=== PATIENT | male | born 1955 | race Caucasian/White ===

== ENCOUNTER 2018-04-08 09:49 | Emergency (ER) | payer OTHER ==
[2018-04-08 09:55] VITALS: TEMP 97.8
--- NOTE | 2018-04-08 10:05 | ED ---
General Adult HPI - General Chief complaint: Extremity Problem,Nontraumatic Stated complaint: poss blood clot Time Seen by Provider: 04/08/18 09:56 Source: patient, RN notes reviewed Mode of arrival: ambulatory Limitations: no limitations - History of Present Illness Initial comments: Patient's a 53-year-old male presented to the emergency room today with chief complaint of needing ultrasound of the right lower extremity. Patient does admit that he had an injury to the anterior aspect of the right lower extremity approximately a month multi-half ago when a cart fell out of the back of truck and scraped front of the medina. Patient does admit that over the last week he's noticed some pains and swelling to the posterior aspect of the right. He did go to a family doctor today was advised coming here in the emergency room to have a shot rule out possible DVT. Patient denies any history of blood clots. He denies any shortness breath, chest pain or difficulty breathing. Patient denies any other complaints. - Related Data Home Medications Medication Instructions Recorded Confirmed Allopurinol [Zyloprim] 100 mg PO BID 12/22/15 12/22/15 Atenolol [Tenormin] 100 mg PO BID 12/22/15 12/26/15 Lisinopril-Hctz 20-25 mg 1 tab PO BID 12/22/15 12/22/15 [Zestoretic 20-25] Loratadine [Claritin] 10 mg PO DAILY 12/22/15 12/22/15 Allergies Allergy/AdvReac Type Severity Reaction Status Date / Time No Known Allergies Allergy Verified 04/08/18 10:48 Review of Systems ROS Statement: Those systems with pertinent positive or pertinent negative responses have been documented in the HPI. ROS Other: All systems not noted in ROS Statement are negative. Past Medical History Past Medical History: GERD/Reflux, Hypertension Additional Past Medical History / Comment(s): HX OF FX COLLAR BONE A CHILD., GOUT, PAST HX OF GERD (NO PROBLEM NOW), HAS HAD A TICKLE IN HIS CHEST - STATES HE WAS ON A STEROID DOSE PACK AND CHEST X-RAY WAS NORMAL, IS SCHEDULED FOR A PFT. History of Any Multi-Drug Resistant Organisms: None Reported Past Surgical History: Appendectomy Past Anesthesia/Blood Transfusion Reactions: No Reported Reaction Past Psychological History: No Psychological Hx Reported Smoking Status: Former smoker Past Alcohol Use History: Daily Past Drug Use History: None Reported - Past Family History Father Family Medical History: Cancer, CVA/TIA, Myocardial Infarction ([place]) Additional Family Medical History / Comment(s): PROSTATE CANCER. Mother Family Medical History: CVA/TIA Sister(s) Family Medical History: Diabetes Mellitus General Exam - General Exam Comments Initial Comments: General: The patient is awake and alert, in no distress, and does not appear acutely ill. Neck: The neck is supple Cardiovascular: There is a regular rate and rhythm. No murmur, rub or gallop is appreciated. Respiratory: Lungs are clear to auscultation, respirations are non-labored, breath sounds are equal. No wheezes, stridor, rales, or rhonchi. Musculoskeletal: Patient does have moderate swelling of the right calf when compared bilaterally. Sensations are intact. Pedal pulses 2+. Strength 5/5. Shows full range of motion. Neurological: A&O x 3. CN II-XII intact, There are no obvious motor or sensory deficits. Coordination appears grossly intact. Speech is normal. Skin: Skin is warm and dry and no rashes or lesions are noted. Psychiatric: Normal mood and affect. Limitations: no limitations Course Vital Signs 04/08/18 09:50 Temperature 97.8 F Pulse Rate 58 L Respiratory 16 Rate Blood Pressure 151/89 O2 Sat by Pulse 97 Oximetry Medical Decision Making - Medical Decision Making Ultrasound negative for any evidence of DVT. Results were discussed with the patient. Patient is advised to elevate the affected area and use anti- inflammatories for pain. Advised follow-up family doctor over the next 2-5 days return here to the emergency room symptoms increase worsen or for any other concerns. Disposition Clinical Impression: Pain of right calf Disposition: HOME SELF-CARE Condition: Good Instructions: Muscle Strain (ED) Additional Instructions: Please use medication as discussed. Please follow-up with family doctor in the next 2-5 days of symptoms have not improved. Please return to emergency room if the symptoms increase or worsen or for any other concerns. Is patient prescribed a controlled substance at d/c from ED?: No Referrals: [facility],Clinic [Primary Care Provider] - 1-2 days Time of Disposition: 11:06
--- NOTE | 2018-04-08 10:41 | US ---
EXAMINATION TYPE: US venous doppler duplex LE RT DATE OF EXAM: 04/08/2018 10:22 AM COMPARISON: NONE CLINICAL HISTORY: Pain. Pt states right calf pain x 2 weeks SIDE PERFORMED: Right TECHNIQUE: The lower extremity deep venous system is examined utilizing real time linear array sonog kevin with graded compression, doppler sonography and color-flow sonography. VESSELS IMAGED: External Iliac Vein (EIV) Common Femoral Vein Deep Femoral Vein Greater Saphenous Vein * Femoral Vein Popliteal Vein Small Saphenous Vein * Proximal Calf Veins (* superficial vessels) Right Leg: Negative for DVT IMPRESSION: No evidence for DVT
[2018-04-08 11:13] VITALS: BP 147/93; PULSE 73; RESP 18
== END 2018-04-08 11:13 | disposition home or self-care (01) ==
LOC: EC 09:49
DX: M79.604 Pain in right leg (principal); M79.89 Other specified soft tissue disorders; I10 Essential (primary) hypertension; M10.9 Gout, unspecified; Z87.891 Personal history of nicotine dependence; Z79.899 Other long term (current) drug therapy
CPT/HCPCS: 99283

== ENCOUNTER → 2018-10-27 | Outpatient (CLI) | payer OTHER ==
--- NOTE | 2018-10-27 15:49 | US ---
EXAMINATION TYPE: US liver DATE OF EXAM: 10/27/2018 COMPARISON: CT 2009 CLINICAL HISTORY: Elevated liver functions R94.5. Elevated LFT's EXAM MEASUREMENTS: Liver Length: 15.7 cm Gallbladder Wall: 0.2 cm CBD: 0.4 cm Right Kidney: 11.3 x 5.7 x 6.4 cm Pancreas: visualized portions wnl, limited by overlying midline bowel gas Liver: There is mild increased echogenicity of the hepatic parenchyma with diminished visualization of the portal triads most commonly relating to hepatic steatosis and limiting evaluation for underlyi ng hepatic masses. Gallbladder: wnl Evidence for sonographic Kumar's sign: no CBD: visualized portions wnl, limited by overlying bowel gas Right Kidney: wnl IMPRESSION: Mild increased echogenicity of the hepatic burden, fevers mild hepatic steatosis.
== END ==
LOC: RADUSWWP 15:07
PROVIDERS: ATTEND Physician Assistant Medical
DX: K76.0 Fatty (change of) liver, not elsewhere classified (principal); R94.5 Abnormal results of liver function studies
CPT/HCPCS: 76705

== ENCOUNTER 2020-09-22 09:26 | Emergency (ER) | payer OTHER ==
[2020-09-22 09:32] VITALS: TEMP 97.9
--- NOTE | 2020-09-22 09:43 | ED ---
General Adult HPI - General Chief complaint: Recheck/Abnormal Lab/Rx Stated complaint: lab recheck-sent by PCP Time Seen by Provider: 09/22/20 09:33 Source: patient, RN notes reviewed Mode of arrival: ambulatory Limitations: no limitations - History of Present Illness Initial comments: Patient is a pleasant 65-year-old male presenting to the emergency Department with complaints of reported hyperkalemia. Patient states he had routine passing blood work done yesterday morning and was called stating that his potassium was down to 2.7. Patient states he is on diuretic. A medina is not on supplemental potassium but does take a multivitamin. Patient otherwise feels fine and has no complaints. No history of similar symptoms previously. - Related Data Home Medications Medication Instructions Recorded Confirmed Atenolol [Tenormin] 100 mg PO BID 12/22/15 09/22/20 allopurinoL [Zyloprim] 200 mg PO DAILY 12/22/15 09/22/20 Diltiazem Cd [Cardizem Cd] 120 mg PO DAILY 04/08/18 09/22/20 Apixaban [Eliquis] 5 mg PO DAILY 09/22/20 09/22/20 Atorvastatin [Lipitor] 40 mg PO DAILY 09/22/20 09/22/20 Clopidogrel Bisulfate [Plavix] 75 mg PO DAILY 09/22/20 09/22/20 Furosemide [Lasix] 40 mg PO DAILY 09/22/20 09/22/20 Multivitamins, Thera [Multivitamin 1 tab PO DAILY 09/22/20 09/22/20 (formulary)] amLODIPine [Norvasc] 5 mg PO DAILY 09/22/20 09/22/20 Previous Rx's Medication Instructions Recorded Potassium Chloride ER [K-Dur 20] 20 meq PO BID #5 tab 09/22/20 Allergies Allergy/AdvReac Type Severity Reaction Status Date / Time No Known Allergies Allergy Verified 09/22/20 09:57 Review of Systems ROS Statement: Those systems with pertinent positive or pertinent negative responses have been documented in the HPI. ROS Other: All systems not noted in ROS Statement are negative. Constitutional: Denies: fever Eyes: Denies: eye pain ENT: Denies: ear pain Respiratory: Denies: cough Cardiovascular: Denies: chest pain, palpitations Endocrine: Denies: fatigue Gastrointestinal: Denies: abdominal pain Genitourinary: Denies: dysuria Musculoskeletal: Denies: back pain Skin: Denies: rash Neurological: Denies: weakness Past Medical History Past Medical History: Atrial Fibrillation, Coronary Artery Disease (CAD), GERD/Reflux, Hypertension Additional Past Medical History / Comment(s): HX OF FX COLLAR BONE A CHILD., GOUT, PAST HX OF GERD (NO PROBLEM NOW), HAS HAD A TICKLE IN HIS CHEST - STATES HE WAS ON A STEROID DOSE PACK AND CHEST X-RAY WAS NORMAL, IS SCHEDULED FOR A PFT. History of Any Multi-Drug Resistant Organisms: None Reported Past Surgical History: Appendectomy Past Anesthesia/Blood Transfusion Reactions: No Reported Reaction Past Psychological History: No Psychological Hx Reported Smoking Status: Never smoker Past Alcohol Use History: Daily Past Drug Use History: None Reported - Past Family History Father Family Medical History: Cancer, CVA/TIA, Myocardial Infarction ([place]) Additional Family Medical History / Comment(s): PROSTATE CANCER. Mother Family Medical History: CVA/TIA Sister(s) Family Medical History: Diabetes Mellitus General Exam Limitations: no limitations General appearance: alert, in no apparent distress Head exam: Present: normocephalic Eye exam: Present: normal appearance Neck exam: Present: normal inspection Respiratory exam: Present: normal lung sounds bilaterally Cardiovascular Exam: Present: regular rate, normal rhythm, normal heart sounds GI/Abdominal exam: Present: soft. Absent: tenderness Extremities exam: Present: normal inspection Neurological exam: Present: alert Psychiatric exam: Present: normal affect, normal mood Skin exam: Present: normal color Course Vital Signs 09/22/20 09/22/20 09:30 10:21 Temperature 97.9 F Pulse Rate 62 49 L Respiratory 20 18 Rate Blood Pressure 168/105 150/90 O2 Sat by Pulse 98 97 Oximetry - Reevaluation(s) Reevaluation #1: 09/22/20 09:59 Patient and she was diagnosed with atrial fibrillation around 6 months ago and placed on Eliquis and Plavix. EKG Findings - EKG Comments: EKG Findings:: Appearance of atrial fibrillation with slow ventricular response. Rate 59. QRS 104. QT 434. QTC 420 9P left axis. Incomplete right bundle- branch block. Borderline lateral ST depression. Medical Decision Making - Medical Decision Making Patient reevaluated and remained symptom-free. Patient updated on results and plan. Patient was recommended admission secondary to concerns with possible EKG changes. Unable to identify old EKG despite calling primary care physician and teletype or varitype keyboard operator. Old teletype or varitype keyboard operator has got out of business. Patient is aware of recommendations however states he is to take care of family members and will leave AGAINST MEDICAL ADVICE. - Lab Data Result diagrams: 09/22/20 09:44 09/22/20 09:44 Lab Results 09/22/20 09/22/20 09/22/20 Range/Units 09:44 09:44 09:44 WBC 6.1 (3.8-10.6) k/uL RBC 4.64 (4.30-5.90) m/uL Hgb 16.0 (13.0-17.5) gm/dL Hct 43.6 (39.0-53.0) % MCV 94.1 (80.0-100.0) fL MCH 34.5 (25.0-35.0) pg MCHC 36.6 (31.0-37.0) g/dL RDW 12.2 (11.5-15.5) % Plt Count 193 (150-450) k/uL MPV 6.8 Neutrophils % 69 % Lymphocytes % 19 % Monocytes % 6 % Eosinophils % 3 % Basophils % 1 % Neutrophils # 4.2 (1.3-7.7) k/uL Lymphocytes # 1.1 (1.0-4.8) k/uL Monocytes # 0.4 (0-1.0) k/uL Eosinophils # 0.2 (0-0.7) k/uL Basophils # 0.1 (0-0.2) k/uL Sodium 137 (137-145) mmol/L Potassium 3.1 L (3.5-5.1) mmol/L Chloride 99 (98-107) mmol/L Carbon Dioxide 30 (22-30) mmol/L Anion Gap 8 mmol/L BUN 12 (9-20) mg/dL Creatinine 0.73 (0.66-1.25) mg/dL Est GFR (CKD-EPI)AfAm >90 (>60 ml/min/1.73 sqM) Est GFR (CKD-EPI)NonAf >90 (>60 ml/min/1.73 sqM) Glucose 141 H (74-99) mg/dL Calcium 8.8 (8.4-10.2) mg/dL Magnesium 1.6 (1.6-2.3) mg/dL Total Bilirubin 1.0 (0.2-1.3) mg/dL AST 51 (17-59) U/L ALT 29 (4-49) U/L Alkaline Phosphatase 73 (38-126) U/L Total Protein 7.3 (6.3-8.2) g/dL Albumin 4.1 (3.5-5.0) g/dL Urine Color Light Yellow Urine Appearance Clear (Clear) Urine pH 6.5 (5.0-8.0) Ur Specific [place] 1.007 (1.001-1.035) Urine Protein Negative (Negative) Urine Glucose (UA) Negative (Negative) Urine Ketones Negative (Negative) Urine Blood Negative (Negative) Urine Nitrite Negative (Negative) Urine Bilirubin Negative (Negative) Urine Urobilinogen <2.0 (<2.0) mg/dL Ur Leukocyte Esterase Negative (Negative) Disposition Clinical Impression: Hypokalemia Disposition: Left Against Medical Advice Instructions (If sedation given, give patient instructions): Hypokalemia (ED) Additional Instructions: Please do follow-up with primary care physician in the next day or 2 for recheck. Please also follow-up with cardiology. You will need to have your potassium level checked on Friday. Return for chest pain, weakness or shortness of breath, worsening or change in symptoms or other concerns. Please have primary care physician and teletype or varitype keyboard operator also reviewed EKG and recheck. Prescription has been sent to your pharmacy Prescriptions: Potassium Chloride ER [K-Dur 20] 20 meq PO BID #5 tab Is patient prescribed a controlled substance at d/c from ED?: No Referrals: [facility],Clinic [Primary Care Provider] - 1-2 days Dougie Cm DO [STAFF PHYSICIAN] - 1-2 days Time of Disposition: 11:43
[2020-09-22 10:02] LABS: Basophils # (A) 0.1 k/uL (0-0.2); Basophils % (A) 1 %; Eosinophils # (A) 0.2 k/uL (0-0.7); Eosinophils % (A) 3 %; HCT 43.6 % (39.0-53.0); Lymphocytes # (A) 1.1 k/uL (1.0-4.8); Lymphocytes % (A) 19 %; MCH 34.5 pg (25.0-35.0); MCHC 36.6 g/dL (31.0-37.0); MCV 94.1 fL (80.0-100.0); Mean Platelet Volume 6.8; Monocytes # (A) 0.4 k/uL (0-1.0); Monocytes % (A) 6 %; Neutrophils # (A) 4.2 k/uL (1.3-7.7); Neutrophils % (A) 69 %; Platelet Count 193 k/uL (150-450); RBC 4.64 m/uL (4.30-5.90); RDW 12.2 % (11.5-15.5); WBC 6.1 k/uL (3.8-10.6)
[2020-09-22 10:14] LABS: Appearance,Urine Clear (Clear); Bilirubin,Urine Negative (Negative); Blood,Urine Negative (Negative); Color,Urine Light Yellow; Glucose,Urine (UA) Negative (Negative); Ketones,Urine Negative (Negative); Leukocyte Esterase,Urine Negative (Negative); Nitrite,Urine Negative (Negative); PH, Urine 6.5 (5.0-8.0); Protein,Urine Negative (Negative); Specific Gravity,Urine 1.007 (1.001-1.035); Urobilinogen,Urine <2.0 mg/dL (<2.0)
[2020-09-22 10:22] VITALS: RESP 18
[2020-09-22 10:27] LABS: ALT 29 U/L (4-49); AST 51 U/L (17-59); African American GFR (CKD) >90 (>60 ml/min/1.73 sqM); Albumin 4.1 g/dL (3.5-5.0); Alkaline Phosphatase 73 U/L (38-126); Anion Gap 8 mmol/L; Blood Urea Nitrogen 12 mg/dL (9-20); Calcium 8.8 mg/dL (8.4-10.2); Carbon Dioxide 30 mmol/L (22-30); Chloride 99 mmol/L (98-107); Glucose 141 mg/dL (74-99); Magnesium 1.6 mg/dL (1.6-2.3); Non-African American GFR(CKD) >90 (>60 ml/min/1.73 sqM); Potassium 3.1 mmol/L (3.5-5.1); Sodium 137 mmol/L (137-145); Total Protein 7.3 g/dL (6.3-8.2)
[2020-09-22] MEDS ORDERED: POTASSIUM CHLORIDE ER 20 MEQ TAB.ER PO STA (11:42)
[2020-09-22 12:05] VITALS: BP 178/104; PULSE 50
== END 2020-09-22 12:04 | disposition left against medical advice (07) ==
LOC: EC 09:26
DX: E87.6 Hypokalemia (principal); I10 Essential (primary) hypertension; K21.9 Gastro-esophageal reflux disease without esophagitis; I48.91 Unspecified atrial fibrillation; I25.10 Atherosclerotic heart disease of native coronary artery without angina pectoris; Z79.899 Other long term (current) drug therapy; Z79.01 Long term (current) use of anticoagulants
CPT/HCPCS: 36415; 80053; 81003; 83735; 85025; 93005; 99285

== ENCOUNTER → 2020-10-16 | Outpatient (CLI) | payer OTHER ==
[2020-10-17 06:39] LABS: African American GFR (CKD) 91.8 (60.0-200.0); Albumin 4.3 g/dL (3.80-4.90); Anion Gap 7.7 mmol/L (4.00-12.00); Calcium 9.3 mg/dL (8.7-10.3); Carbon Dioxide 31.3 mmol/L (21.6-31.8); Non-African American GFR(CKD) 79.2 (60.0-200.0); Phosphorus 3.9 mg/dL (2.4-5.1); Potassium 3.9 mmol/L (3.5-5.5)
== END | disposition home or self-care (01) ==
LOC: LABWHC1 09:35
PROVIDERS: ATTEND Internal Medicine
DX: I10 Essential (primary) hypertension (principal); I25.10 Atherosclerotic heart disease of native coronary artery without angina pectoris; I48.0 Paroxysmal atrial fibrillation; E78.5 Hyperlipidemia, unspecified; R60.0 Localized edema
CPT/HCPCS: 36415; 80069

== ENCOUNTER 2021-03-21 10:34 | Day surgery (SDC) | payer OTHER ==
[2021-03-16 13:32] VITALS: BMI 27.1
[~2021-03-21 10:34] MED LIST: LACTATED RINGERS 1,000 ML IV SCH; LIDOCAINE 1% (10MG/ML) FOR IV START INTRADERMA PRN
[2021-03-21 11:05] VITALS: TEMP 97.3
[2021-03-21] MEDS ORDERED: PROPOFOL 10 MG/ML 20 ML VIAL IV ONE (12:06)
[2021-03-21 12:26] VITALS: RESP 15
--- NOTE | 2021-03-21 12:29 | P.PCN ---
Date of Procedure: 03/21/21 Procedure(s) Performed: BRIEF HISTORY: Patient is a 66-year-old pleasant white male scheduled for an elective colonoscopy as a part of evaluation of prior history of colon polyps. 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 PROCEDURE PERFORMED: Colonoscopy snare polypectomy. PREOPERATIVE DIAGNOSIS: History of colon polyps. IV sedation per Anesthesia. PROCEDURE: After informed consent was obtained, the patient, was brought into the endoscopy unit. IV sedation was administered by Anesthesia under continuous monitoring. Digital rectal examination was normal. Initially the Olympus CF-160 flexible video colonoscope was then inserted in the rectum, gradually advanced into the cecum without any difficulty. Careful examination was performed as the scope was gradually being withdrawn. Ileocecal valve and the appendiceal orifice were visualized and appeared normal. Prep was excellent. Mucosa of the cecum, ascending colon, transverse colon, descending colon, sigmoid colon, and rectum appeared normal. In the distal rectum there was a 3-4 minute a polyp that was removed by snare polypectomy. Moderate sigmoid diverticulosis seen. Retroflexion was performed in the rectum and small internal hemorrhoids were seen. The patient tolerated the procedure well. IMPRESSION: 3-4 mg rectal polyp status post polypectomy Moderate sigmoid diverticulosis Small internal hemorrhoids RECOMMENDATIONS: Findings of this examination were discussed with the patient as well as his family. He was advised to follow with the biopsy results. If the biopsy reveals adenoma he can have a repeat colonoscopy in 5 years..
[2021-03-21 13:01] VITALS: BP 144/86; PULSE 60
== END 2021-03-21 13:44 | disposition home or self-care (01) ==
LOC: ORWHC2ENDO 10:34
PROVIDERS: ATTEND Internal Medicine Gastroenterology
DX: Z12.11 Encounter for screening for malignant neoplasm of colon (principal); K62.1 Rectal polyp; K57.30 Diverticulosis of large intestine without perforation or abscess without bleeding; K64.8 Other hemorrhoids; Z86.010 Personal history of colon polyps; I10 Essential (primary) hypertension; E78.5 Hyperlipidemia, unspecified; I48.91 Unspecified atrial fibrillation; Z79.01 Long term (current) use of anticoagulants; Z79.899 Other long term (current) drug therapy; Z90.49 Acquired absence of other specified parts of digestive tract; Z98.890 Other specified postprocedural states
CPT/HCPCS: 88305; 45385; J2704

== ENCOUNTER → 2021-06-04 | Outpatient (CLI) | payer OTHER ==
--- NOTE | 2021-06-04 10:02 | XR ---
Right shoulder HISTORY: S40.011A, trauma and pain May 24 3 views of the right shoulder correlated prior exam 04/15/2013 Acromioclavicular joint arthropathy change is again noted. Small ossific densities present superimpos ed at the level of the glenohumeral joint superiorly measuring 4 to 5 mm. Some irregularity is questi oned at the superior bony glenoid. Question high riding right shoulder, distal acromial spur. Some sp urring present at the glenohumeral joint. No evident dislocation. IMPRESSION: Findings may be indicative of rotator cuff tear of indeterminate age, there may be synovi al osteochondromatosis, osteoarthritis, shoulder MRI may be of benefit
== END | disposition home or self-care (01) ==
LOC: RADXRMAIN 09:27
PROVIDERS: ATTEND Emergency Medicine
DX: S49.91XA Unspecified injury of right shoulder and upper arm, initial encounter (principal); M25.511 Pain in right shoulder

== ENCOUNTER → 2022-01-07 | Outpatient (CLI) | payer OTHER | END | disposition home or self-care (01) | LOC: RADUSWWP 14:46 | DX: Z53.9 Procedure and treatment not carried out, unspecified reason (principal) ==

== ENCOUNTER → 2022-01-14 | Outpatient (CLI) | payer OTHER ==
--- NOTE | 2022-01-16 14:01 | US ---
EXAMINATION TYPE: US arterial LE multi level DATE OF EXAM: 01/14/2022 1:21 PM CLINICAL HISTORY: R20.2 PARESTHESIA OF SKIN. History of hypertension and prior tobacco use. History o f prior stent in 2015. Doppler Waveforms: Right: Biphasic to multiphasic Left: Predominantly biphasic Pulse Volume Recording: Satisfactory Ankle-Brachial Indices: Right: 1.18 Left: 1.15 Toe Brachial Indices: Right: 0.92 Left: 0.81 IMPRESSION: Normal study
== END | disposition home or self-care (01) ==
LOC: RADUSWWP 12:44
DX: I10 Essential (primary) hypertension (principal); R20.2 Paresthesia of skin; Z87.891 Personal history of nicotine dependence
CPT/HCPCS: 93923

== ENCOUNTER → 2022-03-30 | Outpatient (CLI) | payer OTHER ==
--- NOTE | 2022-03-31 01:39 | MR ---
EXAMINATION TYPE: MR shoulder LT wo con DATE OF EXAM: 03/30/2022 COMPARISON: None HISTORY: Left shoulder pain for 4 months due to fall. Multiplanar multiecho imaging of the left shoulder performed without contrast. There is a large shoulder joint effusion. There is wavy appearance of the subscapularis tendon with a pparent tear at the attachment on the humeral head. There is narrowing of the glenohumeral joint spac e. The biceps tendon appears intact. The glenoid gely show some mild deformity. There is large rotator cuff tear with retraction of the supraspinatus tendon. There is mild subacromi al joint space narrowing. There is spurring at the AC joint and mild subacromial impingement. The inf raspinatus tendon is intact. No fracture seen. IMPRESSION: Large rotator cuff tear with retraction of the supraspinatus tendon. There is also tear of the subsca pularis tendon. There is a moderate-sized shoulder joint effusion. There is mild subacromial impingem ent. Spurring at the AC joint.
== END | disposition home or self-care (01) ==
LOC: RADMRIMAIN 11:28
PROVIDERS: ATTEND Family Medicine
DX: M75.112 Incomplete rotator cuff tear or rupture of left shoulder, not specified as traumatic (principal); M25.412 Effusion, left shoulder

== ENCOUNTER 2023-01-14 09:35 | Emergency (ER) | payer OTHER ==
[2023-01-14 09:48] VITALS: RESP 18
[2023-01-14] MEDS ORDERED: traMADol 50 MG TAB PO STA (10:08)
--- NOTE | 2023-01-14 10:13 | ED ---
Lower Extremity Injury HPI - General Chief Complaint: Extremity Injury, Lower Stated Complaint: Ankle injury Time Seen by Provider: 01/14/23 09:59 Source: patient, RN notes reviewed Mode of arrival: ambulatory Limitations: no limitations - History of Present Illness Initial Comments: Patient is a 68-year-old male presented to the emergency room at the direction of urgent care for further evaluation of swelling to the medial aspect of his left ankle which occurred spontaneously sturdy evening after sitting at the dinner table at her's and sister's home. He reports yesterday evening before going to put there was no bruising at the site but this morning when he woke there was bruising in addition to the swelling and intermittent shooting pain. He denies any injury. He denies any range of motion impairment, numbness, tingling or changes in sensation to heat or cold to the extremity. He is on Eliquis for history of atrial fibrillation. He denies any recent prolonged or procedures. He reports taking his Eliquis as prescribed. He denies any other complaints or concerns at this time. In addition to his atrial fibrillation history is a past medical history significant for GERD, CAD, hypertension and previous alcohol abuse. - Related Data Home Medications Medication Instructions Recorded Confirmed allopurinoL [Zyloprim] 200 mg PO DAILY 12/22/15 03/21/21 atenoloL [Tenormin] 50 mg PO BID 12/22/15 03/21/21 Diltiazem Cd [Cardizem Cd] 120 mg PO QAM 04/08/18 03/21/21 Apixaban [Eliquis] 5 mg PO DAILY 09/22/20 03/21/21 Atorvastatin [Lipitor] 40 mg PO DAILY 09/22/20 03/21/21 Furosemide [Lasix] 40 mg PO DAILY 09/22/20 03/21/21 Multivitamins, Thera [Multivitamin 1 tab PO DAILY 09/22/20 03/21/21 (formulary)] amLODIPine [Norvasc] 5 mg PO QAM 09/22/20 03/21/21 Spironolactone [Aldactone] 25 mg PO DAILY 02/21/21 03/21/21 [place]-3 Fatty Acids/Fish Oil [Fish 1 each PO QAM 03/16/21 03/21/21 Oil 1,000 mg Softgel] Allergies Allergy/AdvReac Type Severity Reaction Status Date / Time No Known Allergies Allergy Verified 01/14/23 09:48 Review of Systems ROS Statement: Those systems with pertinent positive or pertinent negative responses have been documented in the HPI. ROS Other: All systems not noted in ROS Statement are negative. Past Medical History Past Medical History: Atrial Fibrillation, Coronary Artery Disease (CAD), GERD/Reflux, Hypertension Additional Past Medical History / Comment(s): HX OF FX COLLAR BONE A CHILD., GOUT, PAST HX OF GERD (NO PROBLEM NOW), History of Any Multi-Drug Resistant Organisms: None Reported Past Surgical History: Appendectomy, Heart Catheterization With Stent, Orthopedic Surgery Additional Past Surgical History / Comment(s): ACL repair rt knee, one cardiac stent Past Anesthesia/Blood Transfusion Reactions: No Reported Reaction Date of Last Stent Placement:: 11/2018 Past Psychological History: Anxiety Smoking Status: Former smoker Past Alcohol Use History: Daily, Heavy Past Drug Use History: None Reported - Past Family History Father Family Medical History: Cancer, Myocardial Infarction ([place]) Additional Family Medical History / Comment(s): PROSTATE CANCER. Mother Family Medical History: CVA/TIA Sister(s) Family Medical History: Diabetes Mellitus General Exam Limitations: no limitations General appearance: alert, in no apparent distress Head exam: Present: atraumatic, normocephalic, normal inspection Eye exam: Present: normal appearance, PERRL, EOMI. Absent: scleral icterus, conjunctival injection, periorbital swelling ENT exam: Present: normal exam, mucous membranes moist Neck exam: Present: normal inspection, full ROM Respiratory exam: Present: normal lung sounds bilaterally. Absent: respiratory distress, wheezes, rales, rhonchi, stridor Cardiovascular Exam: Present: normal rhythm, bradycardia, normal heart sounds. Absent: systolic murmur, diastolic murmur, rubs, gallop, clicks GI/Abdominal exam: Present: soft, normal bowel sounds. Absent: distended, tenderness, guarding, rebound, rigid Left Foot/Toe exam: Present: full ROM, tenderness, swelling, ecchymosis (medial aspect). Absent: abrasion, laceration, deformity, crepitus, dislocation, erythema, amputation, puncture wound, foreign body, calcaneal tenderness, tenderness at base of 5th metatarsal, nail avulsion, subungual hematoma Neurovascular tendon exam: Present: no vascular compromise. Absent: pulse deficit, motor deficit, sensory deficit, extremity cold to touch, foot drop Gait: observed and limited by pain Back exam: Present: normal inspection, full ROM Neurological exam: Present: alert, oriented X3, CN II-XII intact Psychiatric exam: Present: normal affect, normal mood Skin exam: Present: other (bruising as above) Course Vital Signs 01/14/23 01/14/23 09:45 12:02 Temperature 98.6 F 98.7 F Pulse Rate 53 L 62 Respiratory 18 18 Rate Blood Pressure 131/85 130/89 O2 Sat by Pulse 98 98 Oximetry Procedures - Orthopedic Splinting/Casting Injury #1 Side: left Lower Extremity Injury Location: ankle Lower Extremity Immobilizer: Ion wrap Medical Decision Making - Medical Decision Making Was pt. sent in by a medical professional or institution (, PA, STROBOROMA OPERATOR, urgent care, hospital, or half-way...) When possible be specific @ -Yes, patient sent to the emergency room from urgent care Did you speak to anyone other than the patient for history (EMS, parent, family, police, friend...)? What history was obtained from this source @ -No Did you review nursing and triage notes (agree or disagree)? Why? @ -I reviewed and agree with nursing and triage notes Were old charts reviewed (outside hosp., previous admission, EMS record, old EKG, old radiological studies, urgent care reports/EKG's, half-way records)? Report findings @ -No old charts were reviewed Differential Diagnosis (chest pain, altered mental status, abdominal pain women, abdominal pain men, vaginal bleeding, weakness, fever, dyspnea, syncope, headache, dizziness, GI bleed, back pain, seizure, CVA, palpatations, mental health, musculoskeletal)? @ -Differential Musculoskeletal Muscular strain, contusion, ligament sprain, fracture, arthritis, septic arthritis, bursitis, cellulitis, muscle spasm, nerve compression, DVT, arterial occlusion, herpes zoster, electrolyte abnormality, tumor.... This is not meant to be in all inclusive list EKG interpreted by me (3pts min.). @ -None done X-rays interpreted by me (1pt min.). @ -X-ray left ankle: CT interpreted by me (1pt min.). @ -None done U/S (1pt. min.). @ -Ultrasound venous Doppler of lower extremity not interpreted by me report per radiology. What testing was considered but not performed or refused? (CT, X-rays, U/S, labs)? Why? @ -None What meds were considered but not given or refused? Why? @ -Anti-inflammatories considered but deferred due to Eliquis use. Did you discuss the management of the patient with other professionals (professionals i.e. , PA, STROBOROMA OPERATOR, lab, RT, psych nurse, social science instructor, regulatory compliance manager, teacher, fisheries enforcement officer, protective services case worker)? Give summary @ -No Was smoking cessation discussed for >3mins.? @ -No Was critical care preformed (if so, how long)? @ -No Were there social determinants of health that impacted care today? How? (Homelessness, low income, unemployed, alcoholism, drug addiction, transportation, low edu. Level, literacy, decrease access to med. care, [facility], rehab)? @ -No Was there de-escalation of care discussed even if they declined (Discuss DNR or withdrawal of care, Hospice)? DNR status @ -No What co-morbidities impacted this encounter? (DM, HTN, Smoking, COPD, CAD, Cancer, CVA, ARF, Chemo, Hep., AIDS, mental health diagnosis, sleep apnea, morbid obesity)? @ -None Was patient admitted / discharged? Hospital course, mention meds given and route, prescriptions, significant lab abnormalities, going to OR and other pertinent info. @ -68-year-old male presenting emergency room for further evaluation of tenderness, swelling and bruising to the medial aspect of his left ankle which occurred spontaneously without any known injury on blood thinners. Will give tramadol for pain in the setting of blood thinner use. Will obtain x-ray of the left ankle venous Doppler. Venous Doppler negative for DVT will also obtain x-ray of the left ankle; pain improved with tramadol. X-ray negative for acute osseous pathology soft tissue swelling noted. Findings discussed with patient. Ion wrap applied without complication. Encouraged rest, icing, compression with Ion wrap and elevation when possible. Advised [id number] Tylenol as needed for pain. Questions and concerns answered. Return parameters to the emergency room discussed. Will discharge home in stable condition with conservative management of contusion, pain and swelling of left ankle opposing follow-up with primary care provider. Undiagnosed new problem with uncertain prognosis? @ -No Drug Therapy requiring intensive monitoring for toxicity (Heparin, Nitro, Insulin, Cardizem)? @ -No Were any procedures done? @ -Yes, splint applied. Diagnosis/symptom? @ -Contusion, pain and swelling left ankle Acute, or Chronic, or Acute on Chronic? @ -Acute Uncomplicated (without systemic symptoms) or Complicated (systemic symptoms)? @ -Uncomplicated Side effects of treatment? @ -No Exacerbation, Progression, or Severe Exacerbation? @ -No Poses a threat to life or bodily function? How? (Chest pain, [place], [place], pneumonia, PE, COPD, DKA, ARF, appy, cholecystitis, CVA, Diverticulitis, Homicidal, Suicidal, threat to staff... and all critical care pts) @ -No Case discussed with Dr. Arevalo - Radiology Data Radiology results: report reviewed, image reviewed Disposition Clinical Impression: Pain and swelling of left ankle, Contusion of left ankle Disposition: HOME SELF-CARE Condition: Stable Instructions (If sedation given, give patient instructions): Foot Contusion (ED), Swollen Joint (ED) Additional Instructions: Please continue conservative management with R. I. C. E. Rest joint when possible, apply ice for 20 minute increments every 2-3 hours, keep compression with Ion wrap intact when possible. Elevate joint when possible. Utilize [id number] analgesics of Tylenol as needed for pain. Please follow-up with your primary care provider. Please return to the Emergency Department if symptoms worsen or any other concerns. Is patient prescribed a controlled substance at d/c from ED?: No Referrals: [facility],Clinic [Primary Care Provider] - 1-2 days Time of Disposition: 11:57
--- NOTE | 2023-01-14 10:53 | XR ---
EXAMINATION TYPE: XR ankle complete LT DATE OF EXAM: 01/14/2023 COMPARISON: NONE HISTORY: Swelling and bruising TECHNIQUE: 3 views of the left ankle are submitted for evaluation. FINDINGS: There is no evidence for fracture or dislocation. Ankle mortise is intact. Mild soft tissue swelling of the ankle and lower extremity. Moderate-sized plantar calcaneal enthesophyte. IMPRESSION: 1. No evidence for acute fracture. 2. Mild soft tissue swelling the ankle and lower extremity.
--- NOTE | 2023-01-14 11:43 | US ---
EXAMINATION TYPE: US venous doppler duplex LE LT DATE OF EXAM: 01/14/2023 11:29 AM COMPARISON: NONE CLINICAL INDICATION: Male, 68 years old with history of bruising swelling on eliquis; Left lower leg pain and bruising SIDE PERFORMED: Left TECHNIQUE: The lower extremity deep venous system is examined utilizing real time linear array sonog kevin with graded compression, doppler sonography and color-flow sonography. VESSELS IMAGED: Common Femoral Vein Deep Femoral Vein Greater Saphenous Vein * Femoral Vein Popliteal Vein Small Saphenous Vein * Proximal Calf Veins (* superficial vessels) Grayscale, color doppler, spectral doppler imaging performed of the deep veins of the left lower extr emity. There is normal flow, compressibility, vascular waveforms. Left Leg: Appears negative for DVT IMPRESSION: No ultrasound evidence for deep venous thrombosis of the left lower extremity.
[2023-01-14 12:04] VITALS: BP 130/89; PULSE 62; TEMP 98.7
== END 2023-01-14 12:04 | disposition home or self-care (01) ==
LOC: EC 09:35
DX: S90.02XA Contusion of left ankle, initial encounter (principal); I10 Essential (primary) hypertension; I25.10 Atherosclerotic heart disease of native coronary artery without angina pectoris; I48.91 Unspecified atrial fibrillation; Z86.59 Personal history of other mental and behavioral disorders; Z87.891 Personal history of nicotine dependence; Z79.899 Other long term (current) drug therapy; Z79.01 Long term (current) use of anticoagulants; Z95.5 Presence of coronary angioplasty implant and graft; X58.XXXA Exposure to other specified factors, initial encounter
CPT/HCPCS: 99284

== ENCOUNTER → 2023-06-26 | Outpatient (CLI) | payer OTHER ==
--- NOTE | 2023-06-26 14:59 | XR ---
EXAMINATION TYPE: XR chest 2V DATE OF EXAM: 06/26/2023 2:47 PM CLINICAL INDICATION:Male, 68 years old with history of S40.011A S40.012A S20.20XA; [facility] COMPARISON: 06/04/2021 TECHNIQUE: XR chest 2V Frontal and lateral views of the chest. FINDINGS: Lungs/Pleura: There is no evidence of pleural effusion, focal consolidation, or pneumothorax. Pulmonary vascularity: Unremarkable. Heart/mediastinum: Cardiomediastinal silhouette is unremarkable. Musculoskeletal: No acute osseous pathology. IMPRESSION: No acute cardiopulmonary disease/process.
--- NOTE | 2023-06-26 15:01 | XR ---
EXAMINATION TYPE: XR shoulder complete BILAT, XR humerus bilateral DATE OF EXAM: 06/26/2023 2:47 PM CLINICAL INDICATION:Male, 68 years old with history of S40.011A S40.012A S20.20XA; H COMPARISON: None TECHNIQUE: XR shoulder complete BILAT, XR humerus bilateral; examined in AP, internally rotated and s capular Y projections. Frontal and lateral views of the bilateral humerus was FINDINGS: No evidence of acute osseous pathology, joint dislocation, or soft tissue swelling. The remaining po rtions of the visualized chest are unremarkable. Mild degeneration changes of the left acromion, dis asad clavicle with osteophyte formation. There is osteophyte formation of the glenoid and humeral head . There is joint space narrowing of glenohumeral joint Humerus is intact bilaterally. Olecranon enthesophyte at the triceps insertion on the right and left are noted. Bony protuberances seen bilaterally. IMPRESSION: 1. No acute osseous pathology. 2. Mild to moderate degeneration changes of the shoulders.
--- NOTE | 2023-06-26 15:02 | XR ---
EXAMINATION TYPE: XR ribs RT DATE OF EXAM: 06/26/2023 2:47 PM CLINICAL INDICATION:Male, 68 years old with history of S40.011A S40.012A S20.20XA; [facility] COMPARISON: 06/26/2025. TECHNIQUE: XR ribs RT; Frontal and oblique views of the ribs with frontal chest radiograph. FINDINGS: There is an acute fracture with mild displacement of right rib #7. No additional evidence of fracture. Overall, the lungs are clear. The cardiac silhouette is normal in size. The remaining osseous structures are intact. IMPRESSION: Acute fracture of right rib 7. The remainder of the ribs appear intact.
== END | disposition home or self-care (01) ==
LOC: RADXRMAIN 13:55
PROVIDERS: ATTEND Emergency Medicine
DX: S22.31XA Fracture of one rib, right side, initial encounter for closed fracture (principal); S40.011A Contusion of right shoulder, initial encounter; S40.012A Contusion of left shoulder, initial encounter; S20.20XA Contusion of thorax, unspecified, initial encounter; X58.XXXA Exposure to other specified factors, initial encounter
CPT/HCPCS: 71046

== ENCOUNTER → 2023-08-29 | Outpatient (CLI) | payer OTHER ==
[2023-08-29 16:29] LABS: ALT 65 U/L (10-49); AST 62 U/L (14-35); Chol/HDL Ratio 2.27 Ratio; LDL Cholesterol,Calculated 27.9 mg/dL (0.0-131.0)
== END | disposition home or self-care (01) ==
LOC: LABWHC1 11:55
PROVIDERS: ATTEND Internal Medicine
DX: E78.2 Mixed hyperlipidemia (principal)
CPT/HCPCS: 36415; 80061; 84450; 84460